=== PATIENT | female | born 1950 | race Caucasian/White ===

== ENCOUNTER → 2016-12-31 | Outpatient (CLI) | payer OTHER, MEDICARE | LOC: CIMAGING 14:38 | DX: Z12.31 Encounter for screening mammogram for malignant neoplasm of breast (principal) | CPT/HCPCS: G0202 ==

== ENCOUNTER → 2018-01-08 | Outpatient (CLI) | payer OTHER, MEDICARE | LOC: CIMAGING 09:57 | PROVIDERS: ATTEND Internal Medicine | DX: Z12.31 Encounter for screening mammogram for malignant neoplasm of breast (principal) ==

== ENCOUNTER → 2019-02-17 | Outpatient (CLI) | payer OTHER, MEDICARE | LOC: CIMAGING 14:26 ==